=== PATIENT | female | born 1955 ===

== ENCOUNTER 2024-12-11 10:09 | Day surgery (SDC) | payer OTHER ==
[~2024-12-11 10:09] MED LIST: CRESTOR40 MG PO; DIOVAN160 M1 PO; LIPOFEN150 MG; METFORMIN HCL500 M3 PO; SYNTHROID88 MCG PO
[2024-12-11] MEDS ORDERED: METRONIDAZOLE/SODIUM CHLORIDE 500 MG/100 ML PIGGYBACK IV ONE (10:59)
[2024-12-11] MEDS ORDERED: ZITHROMAX500 MG PO (15:42)
== END 2024-12-11 18:20 | disposition home or self-care (01) ==
LOC: CIR.AMB 10:09
PROVIDERS: ATTEND Obstetrics & Gynecology
DX: N84.0 Polyp of corpus uteri (principal); Z88.2 Allergy status to sulfonamides; Z88.6 Allergy status to analgesic agent